=== PATIENT | female | born 1990 | race Caucasian/White ===

== ENCOUNTER 2018-03-01 09:33 | Emergency (ER) | payer OTHER ==
[~2018-03-01] VITALS: Ht 160 cm; Wt 104.3 kg
[2018-03-01 09:42] VITALS: BP 132/90
--- NOTE | 2018-03-01 09:45 | NUR ---
27Y/F BIB SELF C/O COUGH X 2 WEEKS. PT STATES SHE IS ALSO FEELING WEAK, TIRED, FEVER AND CHILLS AT NIGHT. PT IS AFRIBILE AT THIS TIME, 97.1 F. PT HAS EVEN AND UNLABORED BREATHING AT THIS TIME, AAOX4, VSS, BED DOWN, BEDRAIL UP X 1, ER MD AWARE AND NOTIFIED OF PT STATUS. PMH: NONE RX: DAYQUIL & NYQUIL
--- NOTE | 2018-03-01 11:30 | NUR ---
Patient being evaluated by physician at bedside.
[2018-03-01 11:50] VITALS: BP 131/89
--- NOTE | 2018-03-01 11:50 | NUR ---
Patient discharged with v/s stable. Written and verbal after care instructions given and explained. Patient alert, oriented and verbalized understanding of instructions. Ambulatory with steady gait. All questions addressed prior to discharge. ID band removed. Patient advised to follow up with PMD. Rx of tessalon, flonase, codiene phosphate/promethazine given. Patient educated on indication of medication including possible reaction and side effects. Opportunity to ask questions provided and answered.
== END 2018-03-01 11:50 | disposition home or self-care (01) ==
LOC: MED 09:33
DX: J06.9 Acute upper respiratory infection, unspecified (principal)
CPT/HCPCS: 36415; 71045; 87804; 99284; Q0092

== ENCOUNTER 2019-02-06 14:29 | Emergency (ER) | payer OTHER ==
[~2019-02-06] VITALS: Ht 160 cm; Wt 81.6 kg
[2019-02-06 14:49] VITALS: BP 119/64
--- NOTE | 2019-02-06 14:53 | NUR ---
28/F BIB FAMILY C/O SPORADIC BRUISING THROUGHOUT BODY X2 MONTHS. DENIES TRAUMA. PATIENT STATES PAIN OF 0/10 AT THIS TIME. PATIENT POSITIONED FOR COMFORT; HOB ELEVATED; BEDRAILS UP X1; BED DOWN. ER MD MADE AWARE OF PT STATUS.
--- NOTE | 2019-02-06 15:57 | NUR ---
Patient being evaluated by DR LOMAS at bedside.
[2019-02-06 16:43] LABS: BASOPHILS % (AUTO) 0.5 % (0.0-2.0); EOSINOPHILS # (AUTO) 0.2 K/uL (0-0.4); EOSINOPHILS % (AUTO) 2.2 % (0.0-4.0); HEMATOCRIT 41.2 % (36-48); HEMOGLOBIN 13.5 g/dL (12.0-16.0); LYMPHOCYTES # (AUTO) 2.5 K/uL (2.5-16.5); LYMPHOCYTES % (AUTO) 30.3 % (20.5-51.1); MEAN CORPUSCULAR HEMOGLOBIN 31 pg (27-31); MEAN CORPUSCULAR HGB CONC 33 g/dL (33-37); MEAN CORPUSCULAR VOLUME 92.7 fL (80-94); MONOCYTES # (AUTO) 0.5 K/uL (0.8-1.0); MONOCYTES % (AUTO) 5.7 % (1.7-9.3); NEUTROPHILS # (AUTO) 5.1 K/uL (1.8-7.7); NEUTROPHILS % (AUTO) 61.3 % (42.2-75.2); PLATELET COUNT (AUTO) 364 K/uL (140-450); RED BLOOD CELL COUNT(AUTO) 4.44 MIL/uL (4.20-5.40); RED CELL DISTRIBUTION WIDTH 13.5 % (11.6-13.7); WHITE BLOOD COUNT (AUTO) 8.3 K/uL (4.8-10.8)
[2019-02-06 17:38] VITALS: BP 115/62
--- NOTE | 2019-02-06 17:38 | NUR ---
Patient discharged with v/s stable. Written and verbal after care instructions given and explained. Patient verbalized understanding. Ambulatory with steady gait. All questions addressed prior to discharge. Advised to follow up with PMD.
== END 2019-02-06 17:38 | disposition home or self-care (01) ==
LOC: MED 14:29
DX: L29.9 Pruritus, unspecified (principal); F50.9 Eating disorder, unspecified
CPT/HCPCS: 36415; 84443; 85025; 85610; 85730; 99283

== ENCOUNTER 2019-12-21 10:03 | Emergency (ER) | payer OTHER ==
[~2019-12-21] VITALS: Ht 161.9 cm; Wt 108.0 kg
[2019-12-21 10:17] VITALS: BP 112/70
--- NOTE | 2019-12-21 10:19 | NUR ---
Patient ambulated to bed 6. RN evaluating patient at bedside.
--- NOTE | 2019-12-21 10:26 | NUR ---
URINE SAMPLE COLLECTED AT THIS TIME.
--- NOTE | 2019-12-21 10:31 | NUR ---
Patient being evaluated by Dr. Rios at bedside.
[2019-12-21] MEDS ORDERED: ALUMINUM HYD/MAG/SIMETHICONE 30 ML UDC PO ONE (10:40)
--- NOTE | 2019-12-21 10:45 | NUR ---
PT IS 29 YO FEMALE PRESENTING TO ED WITH COMPLAINT OF ACHING LOWER ABDOMINAL PAIN 6/10 X1 WEEK. PT STATES THAT PAIN INCREASES TO 10/10 AND RADIATES TO UPPER ABDOMEN WELL. PT REPORTS FEELING BLOATED AND FULL, AND UNABLE TO HAVE A BOWEL MOVEMENT FOR 2 DAYS. PT REPORTS HAVING N/V, WITH LAST BOUT OF VOMITING 2 DAYS AGO. PT HAS TAKEN TUMS, JUSTUS SELTZER, AND APPLE CIDER VINEGAR FOR HEART BURN, AND MOTRIN AND TYLENOL FOR PAIN. PT STATES THAT PAIN RELEIF ONLY LASTS ABOUT 30 MINUTES. SHE ALSO REPORTS HAVING TO SIT UPRIGHT TO SLEEP AND BEING AWOKEN BY HER SYMPTOMS WHILE SLEEPING. BS ARE ACTIVE IN ALL 4 QUADRANTS. ABDOMEN IS SOFT AND ROUND, BUT TENDER UPON PALPATION. PT DENIES FEVER OR CHILLS, SOB, COUGH AT THIS TIME. SKIN IS INTACT, PINK/WARM/DRY; AAOX4, PERRL, WITH EVEN AND STEADY GAIT; LUNGS CLEAR BL, BREATHING UNLABORED; HR EVEN AND REGULAR, BL PERIPHERAL PULSES PRESENT; VSS; PATIENT POSITIONED FOR COMFORT; HOB ELEVATED; BED DOWN. NO PHM NKA
[2019-12-21 11:14] LABS: BASOPHILS # (AUTO) 0.1 K/uL (0.00-0.22); BASOPHILS % (AUTO) 0.6 % (0.0-2.0); EOSINOPHILS # (AUTO) 0.2 K/uL (0-0.4); EOSINOPHILS % (AUTO) 2.4 % (0.0-4.0); HEMATOCRIT 39.1 % (36-48); HEMOGLOBIN 13.3 g/dL (12.0-16.0); LYMPHOCYTES # (AUTO) 2.3 K/uL (2.5-16.5); LYMPHOCYTES % (AUTO) 25.7 % (20.5-51.1); MEAN CORPUSCULAR HEMOGLOBIN 31 pg (27-31); MEAN CORPUSCULAR HGB CONC 34 g/dL (33-37); MEAN CORPUSCULAR VOLUME 91.6 fL (80-94); MONOCYTES # (AUTO) 0.7 K/uL (0.8-1.0); MONOCYTES % (AUTO) 7.8 % (1.7-9.3); NEUTROPHILS # (AUTO) 5.7 K/uL (1.8-7.7); NEUTROPHILS % (AUTO) 63.5 % (42.2-75.2); PLATELET COUNT (AUTO) 332 K/uL (140-450); RED BLOOD CELL COUNT(AUTO) 4.27 MIL/uL (4.20-5.40); RED CELL DISTRIBUTION WIDTH 13.1 % (11.6-13.7); WHITE BLOOD COUNT (AUTO) 8.9 K/uL (4.8-10.8)
--- NOTE | 2019-12-21 11:26 | NUR ---
Patient transferred to bed 1 for further care. RN reevaluating the patient at bedside.
[2019-12-21 11:30] LABS: ALBUMIN 3.6 g/dL (3.4-5.0); BILIRUBIN,DIRECT 0.1 mg/dL (0.0-0.3); TOTAL BILIRUBIN 0.3 mg/dL (0.0-1.0)
[2019-12-21 11:37] LABS: APPEARANCE,URINE CLEAR (CLEAR); BILIRUBIN,URINE NEGATIVE (NEGATIVE); BLOOD, URINE 1+ (NEGATIVE); COLOR,URINE YELLOW (YELLOW); LEUKOCYTE ESTERASE ,URINE TRACE (NEGATIVE); NITRITE, URINE NEGATIVE (NEGATIVE); UGLUCOSE NEGATIVE (NEGATIVE)
[2019-12-21 11:47] LABS: WBC,URINE 0-5 /HPF (0-5)
[2019-12-21 11:49] LABS: ANION GAP 20.8 (8-16); CARBON DIOXIDE 25.7 mmol/L (21-32); CREATININE 0.7 mg/dL (0.6-1.3); POTASSIUM 4.5 mmol/L (3.5-5.1)
[2019-12-21 12:35] VITALS: BP 114/65
--- NOTE | 2019-12-21 12:35 | NUR ---
Patient discharged with v/s stable. Written and verbal after care instructions given and explained. Patient alert, oriented and verbalized understanding of instructions. Ambulatory with steady gait. All questions addressed prior to discharge. ID band removed. Patient advised to follow up with PMD. Copies of labs and results given to patient for follow up. Rx of Omeprazole 20mg given. Patient educated on indication of medication including possible reaction and side effects. Opportunity to ask questions provided and answered.
== END 2019-12-21 12:35 | disposition home or self-care (01) ==
LOC: MED 10:03
DX: R10.13 Epigastric pain (principal)
CPT/HCPCS: 36415; 80048; 80076; 81001; 81025; 83690; 85025; 99284